=== PATIENT | female | born 1940 | race Caucasian/White ===

== ENCOUNTER 2019-11-24 16:12 | Inpatient (IN) | payer MEDICARE ==
--- NOTE | 2019-11-24 17:57 | ED ---
General Adult HPI - General Chief complaint: Altered Mental Status Stated complaint: AMS Time Seen by Provider: 11/24/19 16:20 Source: patient, EMS Mode of arrival: EMS Limitations: altered mental status - History of Present Illness Initial comments: 79-year-old female patient presents to the emergency department today for evaluation of altered mental status. Patient was transferred to us from [facility] for neurology consultation. Granddaughter reports that patient has been progressively more confused over the last 5 days. States that she has been performing bizarre behaviors including trying to withdraw $30,000 on the bank has been paranoid that her is "out to get her". Granddaughter states that this is very unusual for her and she is usually alert and oriented 4. Patient currently denies any physical symptoms. Patient denies any recent rash, fever, chills, cough, shortness of breath, chest pain, abdominal pain, nausea, vomiting, diarrhea, constipation, back pain, numbness, tingling, dizziness, weakness, hematuria, dysuria, urinary urgency, urinary frequency, headache, visual changes, or any other complaints. - Related Data Allergies Allergy/AdvReac Type Severity Reaction Status Date / Time lisinopril Allergy Unknown Verified 11/24/19 16:20 losartan Allergy Unknown Verified 11/24/19 16:20 Review of Systems ROS Statement: Those systems with pertinent positive or pertinent negative responses have been documented in the HPI. ROS Other: All systems not noted in ROS Statement are negative. Past Medical History Past Medical History: Unable to Obtain Past Surgical History: Unable to Obtain Smoking Status: Former smoker Past Alcohol Use History: None Reported Past Drug Use History: None Reported General Exam Limitations: altered mental status General appearance: alert, in no apparent distress, other (This is a well- developed, well-nourished elderly female patient in no acute distress. Vital signs upon presentation are temperature 98.0F, pulse 65, respirations 17, blood pressure 165/72, pulse ox 99% on room air.) Eye exam: Present: normal appearance, PERRL, EOMI. Absent: scleral icterus, conjunctival injection, periorbital swelling ENT exam: Present: normal exam, normal oropharynx, mucous membranes moist Respiratory exam: Present: normal lung sounds bilaterally. Absent: respiratory distress, wheezes, rales, rhonchi, stridor Cardiovascular Exam: Present: regular rate, normal rhythm, normal heart sounds. Absent: systolic murmur, diastolic murmur, rubs, gallop, clicks GI/Abdominal exam: Present: soft, normal bowel sounds. Absent: distended, tenderness, guarding, rebound, rigid Neurological exam: Present: alert, CN II-XII intact. Absent: oriented X3 (Oriented x2) Psychiatric exam: Present: normal affect, normal mood Skin exam: Present: warm, dry, intact, normal color. Absent: rash Course Vital Signs 11/24/19 16:17 Temperature 98.0 F Pulse Rate 65 Respiratory 17 Rate Blood Pressure 165/72 O2 Sat by Pulse 99 Oximetry Medical Decision Making - Medical Decision Making 79-year-old female patient presented to the emergency department as a transfer from [facility]. She is transferred for altered mental status and evaluation by neurology. Physical examination is unremarkable. She is very pleasant. Alert and oriented 2. Labs were reviewed from their facility and were relatively unremarkable. Urinalysis is negative for infection. CT scans showed no acute intracranial hemorrhage. EKG showed sinus rhythm. Patient will be admitted to the hospital, neurology will be consulted. Patient and family are agreeable to this plan. Disposition Clinical Impression: Altered mental status Disposition: ADMITTED IP TO THIS [facility] Condition: Serious Instructions (If sedation given, give patient instructions): Altered Mental Status (ED) Referrals: Luis Woodard MD [Primary Care Provider] - 1-2 days Decision to Admit Reason: Admit from EC Decision Date: 11/24/19 Decision Time: 17:57
[2019-11-24] MEDS ORDERED: NALOXONE 0.4 MG/ML 1 ML VIAL IV PRN (18:19)
[2019-11-25 06:32] LABS: Basophils % (A) 0 %; Eosinophils # (A) 0.1 k/uL (0-0.7); Eosinophils % (A) 1 %; HCT 35.1 % (34.0-46.0); HGB 11.4 gm/dL (11.4-16.0); Lymphocytes # (A) 1.4 k/uL (1.0-4.8); Lymphocytes % (A) 28 %; MCH 29.5 pg (25.0-35.0); MCHC 32.4 g/dL (31.0-37.0); MCV 90.9 fL (80.0-100.0); Mean Platelet Volume 7.2; Monocytes # (A) 0.3 k/uL (0-1.0); Monocytes % (A) 6 %; Neutrophils # (A) 3.2 k/uL (1.3-7.7); Neutrophils % (A) 63 %; Platelet Count 267 k/uL (150-450); RBC 3.86 m/uL (3.80-5.40); RDW 15.1 % (11.5-15.5)
[2019-11-25 06:37] LABS: African American GFR (CKD) >90 (>60 ml/min/1.73 sqM); Anion Gap 6 mmol/L; Blood Urea Nitrogen 15 mg/dL (7-17); Calcium 8.9 mg/dL (8.4-10.2); Carbon Dioxide 28 mmol/L (22-30); Chloride 100 mmol/L (98-107); Glucose 93 mg/dL (74-99); Non-African American GFR(CKD) 83 (>60 ml/min/1.73 sqM); Potassium 3.3 mmol/L (3.5-5.1); Sodium 134 mmol/L (137-145)
--- NOTE | 2019-11-25 11:32 | P.CNNES ---
History of Present Illness Consult date: 11/25/19 Requesting physician: Sera Esparza Reason for Consult: Altered mental status History of Present Illness: Patient is a 79-year-old female admitted for altered mental status. Patient was transferred from [facility] for neurology consultation. Patient does not know the details, as to why she came to this hospital. Patient initially presented to outside hospital at around noon yesterday for altered mental status, confusion. Patient was brought by her granddaughter, who noticed that the confusion started 5 days ago but has gotten worse 2 days prior to arrival. Patient was noted to be pleasant but confused to date times although knew her name and age. She was able to follow commands. No reported history of fall or head trauma. Her blood pressure was 168/78, pulse rate 73 and respirations 20. According to ED records, it was also reported that patient has been progressively more confused over the past 5 days. She has been performing bizarre behaviors including trying to withdraw 30,000 from the bank and has been paranoid that her is "out to get her". Grand daughter has mentioned that this is very unusual for her and is usually alert and oriented 4. No physical symptoms reported. No fever or chills cough shortness of breath abdominal pain nausea vomiting diarrhea. No other focal symptoms reported. According to the nurse report, patient has been very paranoid. She states that she would not take food because it was "medication". Patient tells me that she lives with her Armando, and both have memory problems. However both of them try to help each other and both manage well together. She states she has one daughter Mariangel but is not much contact with her. Patient had a computed tomography scan of head performed at outside facility which was normal. Normal ventricles, with no ventriculomegaly. Paranasal sinuses clear. Mild cerebral atrophy. CBC with WBC 10.7, mildly elevated, hemoglobin 12.2, platelets 285. Electrolytes normal, BUN 15, creatinine 0.5. Liver panel normal. UA negative. Patient's Chem-7 is normal with sodium 134 potassium 3.3. Patient has history of hypertension, gout, and hypercholesterolemia. Review of Systems Denies headache, diplopia, loss of vision. Denies nausea vomiting diarrhea or constipation. No focal symptoms. Past Medical History Past Medical History: Unable to Obtain History of Any Multi-Drug Resistant Organisms: None Reported Past Surgical History: Unable to Obtain Past Anesthesia/Blood Transfusion Reactions: No Reported Reaction, Unable to Obtain Past Psychological History: No Psychological Hx Reported, Unable to Obtain Smoking Status: Former smoker Past Alcohol Use History: None Reported Past Drug Use History: None Reported Medications and Allergies Home Medications Medication Instructions Recorded Confirmed Type Aspirin [Adult Low Dose Aspirin EC] 81 mg PO DAILY 11/24/19 11/24/19 History Colchicine [Colcrys] 0.6 mg PO DAILY 11/24/19 11/24/19 History Diltiazem HCl [Diltiazem HCl 24Hr 120 mg PO DAILY 11/24/19 11/24/19 History ER] Lovastatin [Mevacor] 20 mg PO DAILY 11/24/19 11/24/19 History Triamterene/Hydrochlorothiazid 1 tab PO DAILY 11/24/19 11/24/19 History [Triamterene-Hctz 75-50 mg Tab] Ubidecarenone [Co Q-10] 100 mg PO DAILY 11/24/19 11/24/19 History predniSONE 10 mg PO DAILY 11/24/19 11/24/19 History Allergies Allergy/AdvReac Type Severity Reaction Status Date / Time lisinopril Allergy Unknown Verified 11/24/19 18:19 losartan Allergy Unknown Verified 11/24/19 18:19 nitrous oxide AdvReac Nausea & Verified 11/24/19 18:19 Vomiting Physical Examination - Vital Signs Vital Signs: Vital Signs Temp Pulse Pulse Resp BP BP Pulse Ox 11/25/19 00:00 98 F 63 19 123/65 95 11/24/19 21:05 98.2 F 69 19 132/82 96 11/24/19 20:27 97.9 F 69 18 139/77 98 11/24/19 18:29 70 18 145/77 99 11/24/19 16:17 98.0 F 65 17 165/72 99 Intake and Output 11/24/19 11/25/19 11/25/19 22:59 06:59 14:59 Other: Voiding Method Toilet Toilet # Voids 1 Weight 63.503 kg 51 kg On examination patient is an elderly female, in no distress. She is alert and awake. She states that she came to the hospital as she wanted to go to see "a urologist". She then says that Armando (her ) is ALLERGIC to cats. Then she mentioned about some genetic link to her breast cancer. Patient jumps from one topic to another. She states that she was diagnosed with breast cancer 3 years ago and had undergone radiation, no chemo. Patient states that it is November and the year is 2019 and that she is in [facility] in [facility] although later she stated that she is in [facility]. She knows name of the current president. Patient says that she lives in [facility] her speech and language functions are normal. Patient can name and repeat very well. Patient has mildly positive palmomental reflex, mildly positive visuospatial apraxia. Clock drawing test was attempted. Patient was able to place the numbers perfectly, but had problems with placing the hands. Please refer to the diagram available in the paper chart. Patient transcribed "Quarter to five" to "5:45". On cranial examination pupils are round and reactive to li ght, visual braxton are full on confrontation with no neglect. Extraocular muscles are intact. Face is symmetric, tongue protrudes the midline. Palatal elevation and sensation normal. On muscle strength testing, there is no pronator drift and the strength is normal in arms and legs distally and p roximally. She does have slight issues with the right shoulder is slightly weak from arthritis. Reflexes are 1+ and plantars downgoing. Sensory touch is equal. No ataxia for [id number] testing. Tone and bulk of muscles normal. Gait normal. No carotid bruit, S1 and S2 audible Results - Laboratory Findings CBC and BMP: 11/25/19 05:54 11/25/19 05:54 Abnormal Lab Findings: Abnormal Labs 11/25/19 05:54 Sodium 134 L Potassium 3.3 L Assessment and Plan Assessment: * 79-year-old female, admitted with altered mental status, with clear sensorium, but some mental confusion and paranoia. Patient probably has either mild delirium, although no obvious cause identified so far. She may have underlying mild cognitive impairment. Need to obtain collateral history from family members. Plan: * We will check B12, folate, TSH * Computed tomography scan of the head is normal and her examination is nonfocal. I spoke to patient's on the phone, who states that patient has been diagnosed with pseudogout. She was started on Prednisone 15 mg and the dose was increased to 25 mg per day about 5 days ago. At that time the mental confusion and paranoia started. Her states that prior to starting prednisone, she has no memory issues or signs of dementia, as per his observation. Patient most likely has delirium due to high-dose prednisone. Recommend weaning down or tapering off prednisone. No indication for cognitive enhancing medication at this point. Neurologically clear for discharge. If the memory concerns continues to be a problem, then would recommend a follow- up with a neurologist locally to rule out underlying cognitive impairment.
[2019-11-25] MEDS ORDERED: Potassium Replacement Protocol 1 EACH MISC MISCELLANE PRN (12:13)
--- NOTE | 2019-11-25 14:10 | P.HPIM ---
History of Present Illness this is a pleasant 79 years old female with past medical history of pseudogout joints, hypertension, hyperlipidemia. Presents because of altered mental status. Patient is poor historian so information was taken from the chart and staff. It looks like patient was admitted for altered mental status and patient has been evaluated by neurologist thought is a due to the effect of the steroids which was a started a few days ago for her pseudogout and on reviewing her home medication she is on a prednisone 5 mg daily which was stopped. It looks like patient mentation is improving gradually and today she is awake and alert over she still confused, she knows she is in the hospital but thought it was [facility], rather than [facility]. She thought today's date is 11/24/2018home but she noted name of the president. She does not have specific complaints, no chest pain or dyspnea. However she still complaining from pain in her joints about 2-5/10 she states that her pain in her both knees, left shoulder and both wrists. No coughing, no diarrhea and no nausea or vomiting Review of Systems CONSTITUTIONAL: No fever, no malaise, no fatigue. HEENT: No recent visual problems or hearing problems. Denied any sore throat. CARDIOVASCULAR: No orthopnea, PND, no palpitations, no syncope. PULMONARY: No shortness of breath, no cough, no hemoptysis. GASTROINTESTINAL: No diarrhea, no nausea, no vomiting, no abdominal pain. Normoactive bowel sounds. NEUROLOGICAL: No headaches, no weakness, no numbness. HEMATOLOGICAL: Denies any bleeding or petechiae. GENITOURINARY: Denies any burning micturition, frequency, or urgency. MUSCULOSKELETAL/RHEUMATOLOGICAL: Denies any joint pain, swelling, or any muscle pain. ENDOCRINE: Denies any polyuria or polydipsia. Past Medical History Past Medical History: Unable to Obtain History of Any Multi-Drug Resistant Organisms: None Reported Past Surgical History: Unable to Obtain Past Anesthesia/Blood Transfusion Reactions: No Reported Reaction, Unable to Obtain Past Psychological History: No Psychological Hx Reported, Unable to Obtain Smoking Status: Former smoker Past Alcohol Use History: None Reported Past Drug Use History: None Reported Medications and Allergies Home Medications Medication Instructions Recorded Confirmed Type Aspirin [Adult Low Dose Aspirin EC] 81 mg PO DAILY 11/24/19 11/24/19 History Colchicine [Colcrys] 0.6 mg PO DAILY 11/24/19 11/24/19 History Diltiazem HCl [Diltiazem HCl 24Hr 120 mg PO DAILY 11/24/19 11/24/19 History ER] Lovastatin [Mevacor] 20 mg PO DAILY 11/24/19 11/24/19 History Triamterene/Hydrochlorothiazid 1 tab PO DAILY 11/24/19 11/24/19 History [Triamterene-Hctz 75-50 mg Tab] Ubidecarenone [Co Q-10] 100 mg PO DAILY 11/24/19 11/24/19 History predniSONE 10 mg PO DAILY 11/24/19 11/24/19 History Allergies Allergy/AdvReac Type Severity Reaction Status Date / Time lisinopril Allergy Unknown Verified 11/24/19 18:19 losartan Allergy Unknown Verified 11/24/19 18:19 nitrous oxide AdvReac Nausea & Verified 11/24/19 18:19 Vomiting Physical Exam Vitals: Vital Signs Temp Pulse Pulse Resp BP BP Pulse Ox 11/25/19 08:00 98.1 F 78 16 152/80 94 L 11/25/19 00:00 98 F 63 19 123/65 95 11/24/19 21:05 98.2 F 69 19 132/82 96 11/24/19 20:27 97.9 F 69 18 139/77 98 11/24/19 18:29 70 18 145/77 99 11/24/19 16:17 98.0 F 65 17 165/72 99 Intake and Output 11/24/19 11/25/19 11/25/19 22:59 06:59 14:59 Intake Total 180 Balance 180 Intake: Oral 180 Other: Voiding Method Toilet Toilet Toilet # Voids 1 Weight 63.503 kg 51 kg GENERAL: The patient is alert and oriented x1-3, not in any acute distress. Well developed, well nourished. HEENT: Pupils are round and equally reacting to light. EOMI. No scleral icterus. No conjunctival pallor. Normocephalic, atraumatic. No pharyngeal erythema. No thyromegaly. CARDIOVASCULAR: S1 and S2 present. No murmurs, rubs, or gallops. PULMONARY: Chest is clear to auscultation, no wheezing or crackles. ABDOMEN: Soft, nontender, nondistended, normoactive bowel sounds. No palpable organomegaly. MUSCULOSKELETAL: No joint swelling or deformity. EXTREMITIES: No cyanosis, clubbing, or pedal edema. NEUROLOGICAL: Gross neurological examination did not reveal any focal deficits. SKIN: No rashes. No petechiae Results CBC & Chem 7: 11/25/19 05:54 11/25/19 05:54 Labs: Abnormal Lab Results - Last 24 Hours (Table) 11/25/19 Range/Units 05:54 Sodium 134 L (137-145) mmol/L Potassium 3.3 L (3.5-5.1) mmol/L Assessment and Plan Assessment: metabolic encephalopathy, mostly secondary due to medication Polyarthralgias secondary to pseudogout Hypertension Hyperlipidemia Plan: this is a pleasant 79 years old female who presents with Altered mental status. Continue with holding steroids on monitor vitals closely and mental status as well.patient has been already evaluated by neurologist and cleared her for discharge. We'll keep monitoring of the patient as she is gradually improving Labs and medication were reviewed.. Continue same treatment. Continue with symptomatic treatment. Resume home medication. Monitor lytes and vitals. DVT and GI prophylaxis. Further recommendations of the clinical course of the patient DVT prophylaxis: Subcutaneous heparin GI Prophylaxis: Pepcid Prognosis is guarded
[2019-11-25] MEDS ORDERED: HALOPERIDOL LACTATE 5 MG/ML 1 ML VIAL IVP PRN (17:01)
[2019-11-25] MEDS ORDERED: LORazepam 1 MG TAB PO PRN (17:01)
[2019-11-25] MEDS: LORazepam 2 MG/ML INJ IV PRN (17:13)
[2019-11-25] MEDS: HEPARIN SODIUM,PORCINE 5,000 UNIT/ML 1 ML VIAL SQ SCH (20:25)
[2019-11-25] MEDS: FAMOTIDINE 20 MG/2 ML VIAL IV SCH (20:25)
[2019-11-25] MEDS: ACETAMINOPHEN TAB 325 MG TAB PO SCH (21:46)
[2019-11-26] MEDS: CAPSAICIN 0.025% CREAM 60 GM TUBE TOPICAL SCH ×3 (00:24→22:00)
[2019-11-26] MEDS: LORazepam 2 MG/ML INJ IV PRN (03:46)
[2019-11-26] MEDS ORDERED: predniSONE 10 MG TAB PO SCH (09:00)
[2019-11-26 09:55] LABS: African American GFR (CKD) >90 (>60 ml/min/1.73 sqM); Anion Gap 7 mmol/L; Blood Urea Nitrogen 14 mg/dL (7-17); Calcium 8.8 mg/dL (8.4-10.2); Carbon Dioxide 29 mmol/L (22-30); Chloride 97 mmol/L (98-107); Glucose 92 mg/dL (74-99); Non-African American GFR(CKD) 89 (>60 ml/min/1.73 sqM); Potassium 3.1 mmol/L (3.5-5.1); Sodium 133 mmol/L (137-145)
[2019-11-26] MEDS: ACETAMINOPHEN TAB 325 MG TAB PO SCH ×2 (10:18→20:52)
[2019-11-26] MEDS: DILTIAZEM CD 120 MG CAP.ER.24H PO SCH (10:18)
[2019-11-26] MEDS: ASPIRIN 81 MG PO SCH (10:18)
[2019-11-26] MEDS: COLCHICINE 0.6 MG EACH PO SCH (10:19)
[2019-11-26] MEDS: HEPARIN SODIUM,PORCINE 5,000 UNIT/ML 1 ML VIAL SQ SCH ×2 (10:19→20:53)
[2019-11-26] MEDS: FAMOTIDINE 20 MG/2 ML VIAL IV SCH (10:19)
[2019-11-26] MEDS: POTASSIUM CHLORIDE ER 20 MEQ TAB.ER PO SCH ×3 (10:20→15:41)
[2019-11-26] MEDS: TRIAMTERENE-HCTZ 75-50MG 1 EACH TAB PO SCH (10:30)
[2019-11-26 11:06] LABS: Folate, Serum 13.9 ng/mL
[2019-11-26] MEDS ORDERED: CYANOCOBALAMIN 1,000 MCG/ML 1 ML VIAL IM ONE (12:04)
[2019-11-26] MEDS ORDERED: MELATONIN 3 MG TABLET PO PRN (13:02)
--- NOTE | 2019-11-26 13:18 | P.PN ---
Subjective this is a pleasant 79 years old female with past medical history of pseudogout joints, hypertension, hyperlipidemia. Presents because of altered mental status. Patient is poor historian so information was taken from the chart and staff. It looks like patient was admitted for altered mental status and patient has been evaluated by neurologist thought is a due to the effect of the steroids which was a started a few days ago for her pseudogout and on reviewing her home medication she is on a prednisone 5 mg daily which was stopped. It looks like patient mentation is improving gradually and today she is awake and alert over she still confused, she knows she is in the hospital but thought it was [facility], [facility] than [facility]. She thought today's date is 11/24/2018home but she noted name of the president. She does not have specific complaints, no chest pain or dyspnea. However she still complaining from pain in her joints about 2-5/10 she states that her pain in her both knees, left shoulder and both wrists. No coughing, no diarrhea and no nausea or vomiting 11/26/2019 Patient still get agitation at times and she got Ativan 1 mg about 3:00 in the morning, this morning she is more sleepy. However we stop and Ativan and Haldol, put patient on melatonin as needed and call psych consult for her erratic behavior low potassium is been replaced Patient can be transferred to general medical floor with no telemetry Review of system: N/a Active Medications Generic Name Dose Route Start Last Admin Trade Name Robyn PRN Reason Stop Dose Admin Acetaminophen 325 mg 11/25/19 21:00 11/26/19 10:18 Tylenol Tab PO 325 mg BID DANETTE Administration Aspirin 81 mg 11/26/19 09:00 11/26/19 10:18 Aspirin PO 81 mg DAILY DANETTE Administration Capsaicin 1 applic 11/25/19 22:00 11/26/19 10:30 Trixaicin Cream TOPICAL Not Given BID DANETTE Colchicine 0.6 mg 11/26/19 09:00 11/26/19 10:19 Colcrys PO 0.6 mg DAILY DANETTE Administration Cyanocobalamin 1,000 mcg 11/27/19 09:00 Vitamin B-12 PO DAILY DANETTE Diltiazem HCl 120 mg 11/26/19 09:00 11/26/19 10:18 Cardizem Cd PO 120 mg DAILY DANETTE Administration Famotidine 20 mg 11/26/19 21:00 Pepcid PO Q12HR DANETTE Heparin Sodium (Porcine) 5,000 unit 11/25/19 21:00 11/26/19 10:19 Heparin SQ 5,000 unit Q12HR DANETTE Administration Melatonin 3 mg 11/26/19 13:02 Melatonin PO BID PRN Agitation or Acute Anxiety Miscellaneous Information 1 each 11/25/19 12:13 Potassium Per Protocol MISCELLANE DAILY PRN Per Protocol Protocol Naloxone HCl 0.2 mg 11/24/19 18:19 Narcan IV Q2M PRN Opioid Reversal Potassium Chloride 10 meq 11/27/19 09:00 K-Dur 10 PO DAILY DANETTE Potassium Chloride 40 meq 11/26/19 18:00 K-Dur 20 PO 11/26/19 18:01 ONCE ONE Triamterene/HCTZ 1 each 11/26/19 09:00 11/26/19 10:30 Maxzide PO Not Given DAILY DANETTE Objective - Vital Signs Vital signs: Vital Signs Temp 98.2 F 11/26/19 10:04 Pulse 88 11/26/19 13:08 Resp 12 11/26/19 13:08 BP 125/75 11/26/19 13:08 Pulse Ox 98 11/26/19 13:08 Intake & Output 11/25/19 11/26/19 11/26/19 18:59 06:59 18:59 Intake Total 180 0 Output Total 300 200 Balance -120 0 -200 Weight 48.5 kg Intake: Oral 180 0 Output: Urine 300 200 Other: Voiding Method Toilet Toilet # Voids 1 - Exam -GENERAL: The patient is alert and oriented x1-3, patient is more sleepy today HEENT: Pupils are round and equally reacting to light. EOMI. No scleral icterus. No conjunctival pallor. Normocephalic, atraumatic. No pharyngeal erythema. No thyromegaly. CARDIOVASCULAR: S1 and S2 present. No murmurs, rubs, or gallops. PULMONARY: Chest is clear to auscultation, no wheezing or crackles. ABDOMEN: Soft, nontender, nondistended, normoactive bowel sounds. No palpable organomegaly. MUSCULOSKELETAL: No joint swelling or deformity. EXTREMITIES: No cyanosis, clubbing, or pedal edema. NEUROLOGICAL: Gross neurological examination did not reveal any focal deficits. SKIN: No rashes. No petechiae - Labs CBC & Chem 7: 11/25/19 05:54 11/26/19 09:01 Labs: Abnormal Lab Results - Last 24 Hours (Table) 11/26/19 Range/Units 09:01 Sodium 133 L (137-145) mmol/L Potassium 3.1 L (3.5-5.1) mmol/L Chloride 97 L (98-107) mmol/L Assessment and Plan Assessment: metabolic encephalopathy, mostly secondary due to medication Polyarthralgias secondary to pseudogout Hypertension Hyperlipidemia Plan: this is a pleasant 79 years old female who presents with Altered mental status. Thought is secondary to steroids and is improving however she got agitation and time; psych consult. Continue with holding steroids on monitor vitals closely and mental status as well.patient has been already evaluated by neurologist and cleared her for discharge. We'll keep monitoring of the patient as she is gradually improving Labs and medication were reviewed.. Continue same treatment. Continue with symptomatic treatment. Resume home medication. Monitor lytes and vitals. DVT and GI prophylaxis. Further recommendations of the clinical course of the patient DVT prophylaxis: Subcutaneous heparin GI Prophylaxis: Pepcid Prognosis is guarded
[2019-11-26 15:02] VITALS: BMI 18.3
--- NOTE | 2019-11-26 16:03 | P.PN ---
Subjective Progress Note Date: 11/26/19 Patient was sleeping when I saw the patient. I did wake her up. She appeared groggy. Offered no complaints. No headache. Objective - Vital Signs Vital signs: Vital Signs Temp 97.9 F 11/26/19 15:30 Pulse 81 11/26/19 15:30 Resp 16 11/26/19 15:30 BP 123/74 11/26/19 15:30 Pulse Ox 95 11/26/19 15:30 Intake & Output 11/25/19 11/26/19 11/26/19 18:59 06:59 18:59 Intake Total 180 0 Output Total 300 600 Balance -120 0 -600 Weight 48.5 kg 48.5 kg Intake: Oral 180 0 Output: Urine 300 600 Other: Voiding Method Toilet Toilet Toilet # Voids 1 - Exam Deferred due to patient being sleepy. - Labs CBC & Chem 7: 11/25/19 05:54 11/26/19 09:01 Labs: Abnormal Lab Results - Last 24 Hours (Table) 11/26/19 Range/Units 09:01 Sodium 133 L (137-145) mmol/L Potassium 3.1 L (3.5-5.1) mmol/L Chloride 97 L (98-107) mmol/L Assessment and Plan Assessment: * 79-year-old female, admitted with altered mental status, with clear sensorium, but some mental confusion and paranoia. Patient probably has either mild delirium, although no obvious cause identified so far. She may have underlying mild cognitive impairment. Need to obtain collateral history from family members. * B12 deficiency Plan: * B12 235, started on replacement, folate 13.9, TSH 0.853 * Computed tomography scan of the head is normal and her examination is nonfocal. * Prednisone has been held. * Per patient's , no previous history of dementia. If the memory concerns continues to be a problem, then would recommend a follow-up with a neurologist locally to rule out underlying cognitive impairment.
[2019-11-26] MEDS ORDERED: POTASSIUM CHLORIDE ER 20 MEQ TAB.ER PO ONE (18:00)
[2019-11-26] MEDS: FAMOTIDINE 20 MG TAB PO SCH (20:53)
[2019-11-27 07:43] LABS: African American GFR (CKD) >90 (>60 ml/min/1.73 sqM); Anion Gap 11 mmol/L; Blood Urea Nitrogen 18 mg/dL (7-17); Calcium 8.8 mg/dL (8.4-10.2); Carbon Dioxide 22 mmol/L (22-30); Chloride 101 mmol/L (98-107); Glucose 63 mg/dL (74-99); Non-African American GFR(CKD) 87 (>60 ml/min/1.73 sqM); Potassium 3.8 mmol/L (3.5-5.1); Sodium 134 mmol/L (137-145)
[2019-11-27 08:17] VITALS: BP 115/71; PULSE 87; RESP 20; TEMP 98.1
[2019-11-27] MEDS: DILTIAZEM CD 120 MG CAP.ER.24H PO SCH (08:32)
[2019-11-27] MEDS: COLCHICINE 0.6 MG EACH PO SCH (08:32)
[2019-11-27] MEDS: FAMOTIDINE 20 MG TAB PO SCH (08:32)
[2019-11-27] MEDS: TRIAMTERENE-HCTZ 75-50MG 1 EACH TAB PO SCH (08:32)
[2019-11-27] MEDS: ASPIRIN 81 MG PO SCH (08:32)
[2019-11-27] MEDS: HEPARIN SODIUM,PORCINE 5,000 UNIT/ML 1 ML VIAL SQ SCH (08:33)
[2019-11-27] MEDS: CAPSAICIN 0.025% CREAM 60 GM TUBE TOPICAL SCH (08:33)
[2019-11-27] MEDS: ACETAMINOPHEN TAB 325 MG TAB PO SCH (08:33)
[2019-11-27] MEDS ORDERED: POTASSIUM CHLORIDE ER 10 MEQ TAB.ER.PRT PO SCH (09:00)
[2019-11-27] MEDS ORDERED: CYANOCOBALAMIN 500 MCG TAB PO SCH (09:00)
[2019-11-27] MEDS ORDERED: CYANOCOBALAMIN 1,000 MCG/ML 1 ML VIAL IM SCH (09:00)
--- NOTE | 2019-11-27 10:54 | P.DS ---
Providers Date of admission: 11/24/19 17:54 Attending physician: Estefany Stevens Consults: 11/24/19 18:19 Consult Physician Routine Consulting Provider: Anny Lorenz Consult Reason/Comments: Altered Mental Status Do you want consulting provider notified?: Yes 11/26/19 12:58 Consult Physician Routine Consulting Provider: Sidney Duffy Consult Reason/Comments: AMS/bizarre behavior Do you want consulting provider notified?: Yes Primary care physician: Luis Woodard Hospital Course: Diagnoses: metabolic encephalopathy, mostly secondary due to prednisone which is stopped and patient improved Borderline low vitamin B12, been replaced Polyarthralgias secondary to pseudogout Hypertension Hyperlipidemia Hospital course: this is a pleasant 79 years old female with past medical history of pseudogout joints, hypertension, hyperlipidemia. Presents because of altered mental status. As per patient's patient has been diagnosed with pseudogout. She was started on Prednisone 15 mg and the dose was increased to 25 mg per day about 5 days earlier. At that time the mental confusion and paranoia started. Patient has been evaluated by neurologist, CT of the brain showing no acute process. Patient was treated with sedatives and her prednisone was stopped. Patient showed interval improvement and today she is awake and alert and oriented to time, place and person as she knows she is in the hospital in [place] and the name Carlos. Continue its 11/27/2019 name of the president, patient wasn't sure where she was here in the hospital and she was updated and she verbalized understanding and acceptance and patient was instructed to avoid prednisone and steroids in the future and for her joint pain she can use topical cream, Tylenol and colchicine and follow-up with her doctor and she agrees Patient is calm and she wants to go home and she denies other symptoms. Patient denies hallucination, delusion, she denies depression and denies suicidal or homicidal ideation. Patient was cleared by neurologist for discharge Problems and management plan were discussed with the patient and he verbalized understanding and acceptance Patient was found stable and can be discharged home however he needs follow-up as an outpatient. Patient was instructed to follow up with PCP Dr. woodard within one week and patient agrees also patient was instructed to follow up neurologist as an outpatient and 2 units are suggested for her Dr. Baker and Dr. Vasquez and she agrees to call and make her own appointment Gen: patient is a AAOx3, no distress CVS: S1-S2, RRR, no murmur Lungs: B/L CTA, no wheezing Abdomen: soft, no distention, no tenderness, positive bowel sounds Extremity: no leg edema or induration Time spent more than 35 minutes Patient Condition at Discharge: Serious Plan - Discharge Summary Discharge Rx Participant: No New Discharge Prescriptions: New Capsaicin Cream [Trixaicin Cream] 1 applic TOPICAL BID #1 applic Acetaminophen Tab [Tylenol] 325 mg PO Q6HR #40 tab Cyanocobalamin [Vitamin B-12] 1,000 mcg PO DAILY #60 tab Continue Aspirin [Adult Low Dose Aspirin EC] 81 mg PO DAILY Triamterene/Hydrochlorothiazid [Triamterene-Hctz 75-50 mg Tab] 1 tab PO DAILY Lovastatin [Mevacor] 20 mg PO DAILY Diltiazem HCl [Diltiazem HCl 24Hr ER] 120 mg PO DAILY Colchicine [Colcrys] 0.6 mg PO DAILY Ubidecarenone [Co Q-10] 100 mg PO DAILY Discontinued predniSONE 10 mg PO DAILY Discharge Medication List Aspirin [Adult Low Dose Aspirin EC] 81 mg PO DAILY 11/24/19 [History] Colchicine [Colcrys] 0.6 mg PO DAILY 11/24/19 [History] Diltiazem HCl [Diltiazem HCl 24Hr ER] 120 mg PO DAILY 11/24/19 [History] Lovastatin [Mevacor] 20 mg PO DAILY 11/24/19 [History] Triamterene/Hydrochlorothiazid [Triamterene-Hctz 75-50 mg Tab] 1 tab PO DAILY 11/24/19 [History] Ubidecarenone [Co Q-10] 100 mg PO DAILY 11/24/19 [History] Acetaminophen Tab [Tylenol] 325 mg PO Q6HR #40 tab 11/26/19 [Rx] Capsaicin Cream [Trixaicin Cream] 1 applic TOPICAL BID #1 applic 11/26/19 [Rx] Cyanocobalamin [Vitamin B-12] 1,000 mcg PO DAILY #60 tab 11/26/19 [Rx] Follow up Appointment(s)/Referral(s): Luis Woodard MD [Primary Care Provider] - 1-2 days [facility], [NON-STAFF] - Pebbles Baker MD [Medical Doctor] - 2 Weeks (neurologist , memory impairment ) Brigid Cheatham MD [STAFF PHYSICIAN] - 2 Weeks (neurologist, for memory impairment) Patient Instructions/Handouts: Altered Mental Status (ED) Discharge Disposition: HOME SELF-CARE
--- NOTE | 2019-11-27 18:09 | P.PN ---
Subjective Progress Note Date: 11/27/19 Patient was mildly drowsy, but woke up and able to participate with examination. Offers no complaints. Denies any memory issues. Wants to go home. Denies headache. Objective - Vital Signs Vital signs: Vital Signs Temp 98.1 F 11/27/19 08:16 Pulse 87 11/27/19 08:16 Resp 20 11/27/19 08:16 BP 115/71 11/27/19 08:16 Pulse Ox 96 11/27/19 08:16 Intake & Output 11/26/19 11/27/19 11/27/19 18:59 06:59 18:59 Intake Total 200 Output Total 600 Balance -600 200 Weight 48.5 kg Intake: Oral 200 Output: Urine 600 Other: Voiding Method Toilet Toilet # Voids 1 2 - Exam Patient is alert and awake. She knows it is November 26 and the year is . She knows that she is in [facility] although she states that she is in [place], but then stated was [facility]. Speech and language functions are normal. Muscle strength is normal. - Labs CBC & Chem 7: 11/25/19 05:54 11/27/19 05:50 Labs: Abnormal Lab Results - Last 24 Hours (Table) 11/27/19 Range/Units 05:50 Sodium 134 L (137-145) mmol/L BUN 18 H (7-17) mg/dL Glucose 63 L (74-99) mg/dL Assessment and Plan Assessment: * Acute delirium, likely due to side effect of corticosteroids. * B12 deficiency Plan: * B12 235, started on replacement, folate 13.9, TSH 0.853 * Computed tomography scan of the head is normal and her examination is nonfocal. * Prednisone has been held. * Per patient's , no previous history of dementia. If the memory concerns continues to be a problem, then would recommend a follow-up with a neurologist locally to rule out underlying cognitive impairment. * Neurologically clear for discharge.
== END 2019-11-27 17:00 | disposition home health service (06) | DRG 93 ==
LOC: SUPCPDRO 16:12 → EC 16:12 → 3SCARD 17:54 → 5NMEDONC 11-27 08:50
PROVIDERS: ADMIT Internal Medicine; ATTEND Internal Medicine
DX: G92 Toxic encephalopathy (principal); E53.8 Deficiency of other specified B group vitamins; T38.0X5A Adverse effect of glucocorticoids and synthetic analogues, initial encounter; M11.29 Other chondrocalcinosis, multiple sites; E78.00 Pure hypercholesterolemia, unspecified; I10 Essential (primary) hypertension; E78.5 Hyperlipidemia, unspecified; F41.9 Anxiety disorder, unspecified; Z79.82 Long term (current) use of aspirin; Z79.899 Other long term (current) drug therapy; Z87.891 Personal history of nicotine dependence; Z85.3 Personal history of malignant neoplasm of breast; Z92.3 Personal history of irradiation; Z88.8 Allergy status to other drugs, medicaments and biological substances; Y92.009 Unspecified place in unspecified non-institutional (private) residence as the place of occurrence of the external cause
CPT/HCPCS: 80048; 82607; 82746; 83735; 84443; 85025; 99285